=== PATIENT | male | born 1955 | race Caucasian/White ===

== ENCOUNTER 2016-09-15 12:11 | Inpatient (IN) | payer BC ==
[~2016-09-15] VITALS: Ht 175.3 cm; Wt 107.0 kg
[2016-09-15] VITALS (9 sets, daily range): BP systolic 153–190; BP diastolic 90–117; PULSE 90–108; RESP 18–20; TEMP 97.8–98.8; O2SAT 96–99
[2016-09-15] MEDS ORDERED: SODIUM CHLOR 0.9% 1000 ML INJ 1,000 ML IV ONE (12:14)
--- NOTE | 2016-09-15 12:31 | RADRPT ---
EXAM DATE/TIME: 09/15/2016 12:10 [facility] COMPARISON: No previous studies available for comparison. INDICATIONS : Stroke alert; left side weakness. RADIATION DOSE: 56.35 CTDIvol (mGy) This report was called by Gini to Alex at 12: 27 MEDICAL HISTORY : Non-responsive. SURGICAL HISTORY : Non-responsive. ENCOUNTER: Initial ACUITY: 1 day PAIN SCALE: 0/10 LOCATION: cranial TECHNIQUE: Multiple contiguous axial images were obtained of the head. Using automated exposure control and adj ustment of the mA and/or kV according to patient size, radiation dose was kept as low as reasonably a chievable to obtain optimal diagnostic quality images. FINDINGS: CEREBRUM: The ventricles are normal for age. No evidence of midline shift, mass lesion, hemorrhage or acute in farction. No extra-axial fluid collections are seen. POSTERIOR FOSSA: The cerebellum and brainstem are intact. The 4th ventricle is midline. The cerebellopontine angle i s unremarkable. EXTRACRANIAL: The visualized portion of the orbits is intact. SKULL: The calvaria is intact. No evidence of skull fracture. CONCLUSION: Normal examination. Modesto Rubalcava MD on September 15, 2016 at 12:21 Board Certified Radiologist. This report was verified electronically.
[2016-09-15] MEDS ORDERED: ASPI81CH CHEW (12:36)
[2016-09-15] MEDS ORDERED: HYDR25TA5 PO (12:36)
[2016-09-15] MEDS ORDERED: LISI40TA PO (12:36)
[2016-09-15 12:41] LABS: AUTOMATED NEUTROPHIL # 9.4 TH/MM3 (1.8-7.7); BASOPHIL # 0.2 TH/MM3 (0-0.2); BASOPHIL % 1.2 % (0.0-2.0); EOSINOPHIL # 0.2 TH/MM3 (0-0.4); EOSINOPHIL % 1.5 % (0.0-4.0); HEMO FLAGS DIFF FINAL; I-STAT POTASSIUM 4.3 MMOL/L (3.5-4.9); I-STAT SODIUM 138 MMOL/L (138-146); LYMPH % 26.7 % (9.0-44.0); MEAN CORPUSCULAR HEMOGLOBIN 32.1 PG (27.0-34.0); MEAN CORPUSCULAR HGB CONC 34.5 % (32.0-36.0); MONO % 6.9 % (0.0-8.0); NEUT % 63.7 % (16.0-70.0); PLATELET COUNT 369 TH/MM3 (150-450); RED BLOOD COUNT 5.05 MIL/MM3 (4.50-5.90); RED CELL DISTRIBUTION WIDTH 13.1 % (11.6-17.2); WHITE BLOOD COUNT 14.8 TH/MM3 (4.0-11.0)
--- NOTE | 2016-09-15 12:56 | PD ---
HPI Chief Complaint: Stroke Alert Time Seen by Provider: 12:14 Travel History International Travel<30 days: No Contact w/Intl Traveler<30days: No Traveled to known affect area: No History of Present Illness HPI Patient is a 60-year-old male with history of HTN here as a stroke alert. Patient reportedly approximately 11:30 this morning had sudden onset of right sided facial droop, left arm weakness. Stroke alert was called per EMS. Patient is not anticoagulated, vital signs normal. Patient denies any history of CVA, TIA. He denies any neuro deficit. No chest pain, shortness of breath or palpitations. PFSH Past Medical History Hypertension: Yes Past Surgical History Tonsillectomy: Yes Social History Tobacco Use: No Allergies-Medications (Allergen,Severity, Reaction): Coded Allergies: Penicillin (Verified Allergy, Mild, 12/24/05) Sulfa (Verified Allergy, Mild, 12/24/05) Reported Meds & Prescriptions Reported Meds & Active Scripts Active Reported Aspirin 81 Mg Chew 81 Mg CHEW DAILY Hydrochlorothiazide 25 Mg Tab 25 Mg PO DAILY Lisinopril 40 Mg Tab 40 Mg PO DAILY Review of Systems ROS Limitations: Clinical Condition Except as stated in HPI: all other systems reviewed are Neg Physical Exam Exam Limitations: Clinical Condition Narrative GENERAL: Well-appearing male in no acute distress SKIN: Focused skin assessment warm/dry. HEAD: Atraumatic. Normocephalic. EYES: Pupils equal and round. No scleral icterus. No injection or drainage. ENT: No nasal bleeding or discharge. Mucous membranes pink and moist. NECK: Supple CARDIOVASCULAR: Slightly tachycardic with heart rate in the 90s to 100, regular rhythm. No murmur appreciated. RESPIRATORY: No accessory muscle use. Clear to auscultation. Breath sounds equal bilaterally. GASTROINTESTINAL: Abdomen soft, non-tender, nondistended. Obese MUSCULOSKELETAL: No obvious deformities. No edema. NEUROLOGICAL: Awake and alert. No obvious cranial nerve deficits other than subtle right sided facial droop. Left upper extremity is weak with 4+ out of 5 discharge rn strength and flexion/extension, but no drift. Otherwise strength is intact throughout extremities, no ataxia. Normal speech. PSYCHIATRIC: Appropriate mood and affect; insight and judgment normal. Data Data Last Documented VS Vital Signs Date Time Temp Pulse Resp B/P Pulse Ox O2 Delivery O2 Flow Rate FiO2 09/15/16 12:32 98 Nasal Cannula 2 09/15/16 12:11 97.8 108 18 190/117 Orders Diet Npo (09/15/16 Lunch) Activity Bed Rest (09/15/16 ) Electrocardiogram (09/15/16 ) I-Stat Creatinine (09/15/16 12:14) I-Stat Profile (09/15/16 12:14) Prothrombin Time / Inr (Pt) (09/15/16 12:14) Act Partial Throm Time (Ptt) (09/15/16 12:14) Complete Blood Count With Diff (09/15/16 12:14) Fibrinogen (09/15/16 12:14) Creatine Kinase (Cpk) (09/15/16 12:14) Troponin I (09/15/16 12:14) Ua Includes Microscopic (09/15/16 12:14) Drug Screen, Random Urine (09/15/16 12:14) Type And Screen (09/15/16 12:14) Ct Brain W/O Iv Contrast(Rout) (09/15/16 ) Consult Neurology (09/15/16 ) Blood Glucose (09/15/16 12:14) Ecg Monitoring (09/15/16 12:14) Neuro Checks Q2HX12,Q4H (09/15/16 12:14) Nursing Bedside Swallow Assess .ONCE (09/15/16 12:14) Iv Access Insert/Monitor (09/15/16 12:14) NPO (09/15/16 12:14) Oximetry (09/15/16 12:14) Oxygen Administration (09/15/16 12:14) Sodium Chlor 0.9% 1000 Ml Inj (Ns 1000 M (09/15/16 12:14) Resp Oxygen Dez C Titrat 1-4 L (09/15/16 12:14) (Hub Use Only)Inp Phy Cons/Ref (09/15/16 ) Admit Order (Ed Use Only) (09/15/16 12:59) Labs Laboratory Tests Test 09/15/16 09/15/16 12:25 12:37 White Blood Count 14.8 TH/MM3 Red Blood Count 5.05 MIL/MM3 Hemoglobin 16.2 GM/DL Bedside Hemoglobin 17.0 G/DL Hematocrit 47.0 % Bedside Hematocrit 50.0 % Mean Corpuscular Volume 93.0 FL Mean Corpuscular Hemoglobin 32.1 PG Mean Corpuscular Hemoglobin 34.5 % Concent Red Cell Distribution Width 13.1 % Platelet Count 369 TH/MM3 Mean Platelet Volume 8.8 FL Neutrophils (%) (Auto) 63.7 % Lymphocytes (%) (Auto) 26.7 % Monocytes (%) (Auto) 6.9 % Eosinophils (%) (Auto) 1.5 % Basophils (%) (Auto) 1.2 % Neutrophils # (Auto) 9.4 TH/MM3 Lymphocytes # (Auto) 4.0 TH/MM3 Monocytes # (Auto) 1.0 TH/MM3 Eosinophils # (Auto) 0.2 TH/MM3 Basophils # (Auto) 0.2 TH/MM3 CBC Comment DIFF FINAL Differential Comment Bedside Sodium 138 MMOL/L Bedside Potassium 4.3 MMOL/L Bedside Chloride 100 MMOL/L Bedside Blood Urea Nitrogen 11 MG/DL Bedside Creatinine 1.0 MG/DL Bedside Glucose 130 MG/DL Total Creatine Kinase 213 U/L Troponin I LESS THAN 0.02 NG/ML Prothrombin Time 10.6 SEC Prothromb Time International 1.0 RATIO Ratio Activated Partial 26.9 SEC Thromboplast Time Fibrinogen 311 mg/dL Blood Type A NEGATIVE [facility] Medical Decision Making Medical Screen Exam Complete: Yes Emergency Medical Condition: Yes Medical Record Reviewed: Yes Differential Diagnosis 60-year-old male with history of HTN here as a stroke alert for right facial droop, left-sided arm weakness. NIH stroke scale is only 14 facial droop. This is calculated 3 minutes after arrival by myself. Differential includes CVA , TIA, arrhythmia, electrolyte abnormality Narrative Course Patient placed on monitor, IV established and blood obtained. Patient was examined, and a stroke scale of 1 for facial droop. Later by myself 3 minutes after arrival. Patient expedited to CT where imaging of the brain was negative. I spoke with Dr. Coffman of neurology who agrees that given his minimal deficit patient is not a candidate for thrombolysis at this time. Twelve-lead EKG shows sinus tachycardia, rate [address] or T-wave abnormalities and normal intervals. CBC, i-STAT, coags, fibrinogen, CPK, troponin, urinalysis, urine drug screen, type and screen were obtained and notable for WBC 14.8. Urinalysis and urine drug screen remain pending. Patient admitted for further management. Critical Care Narrative Aggregate critical care time was 40 minutes. Time to perform other separately billable procedures was not included in the critical care time. My time did not include minutes spent treating any other patients simultaneously or on activities that did not directly contribute to the patient's treatment. The services I provided to this patient were to treat and/or prevent clinically significant deterioration that could result in: Consideration of thrombolysis I provided critical care services requiring my management, as noted below: Chart data review, documentation time, medication orders and management, vital sign assessments/reviewing monitor data, ordering and reviewing lab tests, ordering and interpreting/reviewing x-rays and diagnostic studies, care of the patient and discussion of the patient with the admitting physicians. Diagnosis Primary Impression: CVA (cerebral vascular accident) Qualified Code: I63.9 - Cerebrovascular accident (CVA), unspecified mechanism Additional Impression: Left arm weakness Admitting Information Admitting Physician Requests: it Kaelyn Johnson MD Sep 15, 2016 12:56
[2016-09-15 13:12] LABS: APTT (PATIENT) 26.9 SEC (24.3-30.1); PROTHROMBIN TIME - PATIENT 10.6 SEC (9.8-11.6)
[2016-09-15 13:25] LABS: CREATINE KINASE 213 U/L (39-308)
[2016-09-15] MEDS ORDERED: ASPIRIN EC 81 MG TABEC PO SCH (14:30)
--- NOTE | 2016-09-15 14:42 | HHI.HP ---
HPI Service Family Medicine Primary Care Physician Unknown Admission Diagnosis CVA, L arm weakness Diagnoses: International Travel<30 Days: No Contact w/Intl Traveler<30days: No Known Affected Area: No History of Present Illness 60-year-old male with HTN and tobacco use presents with slurred speech and left arm weakness. Symptoms began acutely 2.5 hours ago (11:30am) while patient was walking to his car after Court and his left arm "just wouldn' t work". He drove to his office, took aspirin, and an ambulance drove him to the ED. Symptoms have improved somewhat over the last 3 hours, but reports continued slurred speech, loss of fine motor movement of left hand (trouble holding phone), and decreased visual acuity (difficulty reading texts). Review of systems otherwise negative. Denies headache, double vision, neck pain, chest pain/palpitations, shortness of breath, abdominal pain, nausea/vomiting, urinary symptoms, incontinence, or neuropathy. Pt 05/28 PPD smoker x 40 years. 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 (Monique Louise MD R1) Review of Systems Constitutional: DENIES: Fever, Chills, Dizziness Endocrine: DENIES: Polyuria, Polyphagia Eyes: DENIES: Blurred vision, Double Vision Ears, nose, mouth, throat: DENIES: Throat pain, Hoarseness Respiratory: COMPLAINS OF: Snoring, DENIES: Cough, Wheezing, Shortness of breath Cardiovascular: DENIES: Chest pain, Palpitations, Syncope, Lower Extremity Edema Gastrointestinal: DENIES: Abdominal pain, Constipation, Diarrhea, Nausea, Vomiting, Difficulty Swallowing Genitourinary: DENIES: Urinary frequency, Urinary incontinence Musculoskeletal: DENIES: Joint pain, Neck pain Integumentary: DENIES: Rash Neurologic: COMPLAINS OF: Localized weakness, Speech Problems, DENIES: Abnormal gait, Headache, Paresthesias, Seizures Psychiatric: DENIES: Confusion, Mood changes (Monique Louise MD R1) Past Family Social History Past Medical History HTN Borderline HLD (not requiring medication, per pt) Past Surgical History Tonsillectomy Root canal Reported Medications Aspirin 81 Mg daily Hydrochlorothiazide 25 Mg daily (occasionally forgets to take) Lisinopril 40 Mg daily (Monique Louise MD R1) Allergies: Coded Allergies: Amoxicillin (Verified Adverse Reaction, Mild, Rash, 09/15/16) Day 5-6 of use on arm. No tongue swelling, no difficulty swallowing, no lip swelling. Family History Mother at 77 of brain aneurysm. Father of "old age", had several small strokes during the last years of life. Denies family history of bleeding disorders of stroke in people younger than 90. Social History Tobacco: 05/28 PPD * 40 years Alcohol: 12 beers/week. Occasionally more than 6 drink/day on a special occasion/if not driving. Recently went 1 week without drinking. Denies withdrawal symptoms. 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 (Monique Louise MD R1) Physical Exam Vital Signs Vital Signs Date Time Temp Pulse Resp B/P Pulse Ox O2 Delivery O2 Flow Rate FiO2 09/15/16 12:32 98 Nasal Cannula 2 09/15/16 12:17 96 Nasal Cannula 2.00 09/15/16 12:11 97.8 108 18 190/117 99 09/15/16 12:10 96 2.00 Physical Exam GENERAL: Obese male in no acute distress, lying with HOB flat SKIN: Warm and dry, no rashes HEENT: Pupils equal round and reactive. Extraocular motions intact. No scleral icterus. No injection or drainage. Throat without erythema, tonsillar hypertrophy or exudate. Uvula midline. NECK: Trachea midline. No JVD or lymphadenopathy. Thick neck. CARDIOVASCULAR: Borderline Tachycardic. Regular rate and rhythm. No murmurs. RESPIRATORY: Clear to auscultation. Breath sounds equal bilaterally. No wheezes GASTROINTESTINAL: Abdomen obese, soft, non-tender, nondistended. No hepato- splenomegaly, or palpable masses. No guarding. MUSCULOSKELETAL: Extremities without clubbing, cyanosis, or edema. No joint tenderness, effusion, or edema noted. No calf tenderness. NEUROLOGICAL: Awake and alert. Questionable minimal R-sided facial droop. Minimally slurred speech. Otherwise, CN II through XII intact. L bicep/tricep strength 4/5. All other strength 5/5. Sensation intact. Patellar reflexes 1+ b/ l. No pronator drift. Gait deferred. Laboratory Laboratory Tests Test 09/15/16 09/15/16 12:25 12:37 White Blood Count 14.8 Red Blood Count 5.05 Hemoglobin 16.2 Bedside Hemoglobin 17.0 Hematocrit 47.0 Bedside Hematocrit 50.0 Mean Corpuscular Volume 93.0 Mean Corpuscular Hemoglobin 32.1 Mean Corpuscular Hemoglobin 34.5 Concent Red Cell Distribution Width 13.1 Platelet Count 369 Mean Platelet Volume 8.8 Neutrophils (%) (Auto) 63.7 Lymphocytes (%) (Auto) 26.7 Monocytes (%) (Auto) 6.9 Eosinophils (%) (Auto) 1.5 Basophils (%) (Auto) 1.2 Neutrophils # (Auto) 9.4 Lymphocytes # (Auto) 4.0 Monocytes # (Auto) 1.0 Eosinophils # (Auto) 0.2 Basophils # (Auto) 0.2 CBC Comment DIFF FINAL Differential Comment Bedside Sodium 138 Bedside Potassium 4.3 Bedside Chloride 100 Bedside Blood Urea Nitrogen 11 Bedside Creatinine 1.0 Bedside Glucose 130 Total Creatine Kinase 213 Troponin I LESS THAN 0.02 Prothrombin Time 10.6 Prothromb Time International 1.0 Ratio Activated Partial 26.9 Thromboplast Time Fibrinogen 311 Blood Type A NEGATIVE Antibody Screen NEGATIVE (Monique Louise MD R1) Result Diagram: 09/15/16 1225 Imaging Last Impressions Head CT 09/15/16 0000 Signed Impressions: Service Date/Time: Thursday, September 15, 2016 12:10 - CONCLUSION: Normal examination. Modesto Rubalcava MD Course ED course: 60-year-old male with history of HTN presents as stroke alert for right facial droop, left-sided arm weakness. Patient placed on monitor, IV established and blood obtained. Examined, stroke scale of 1 for facial droop. Expedited to CT where imaging of the brain was negative. Dr May spoke with Dr. Coffman of neurology who agrees that given his minimal deficit patient is not a candidate for thrombolysis at this time. Twelve-lead EKG shows sinus tachycardia, rate [address] or T-wave abnormalities and normal intervals. CBC, i-STAT, coags, fibrinogen, CPK, troponin, urinalysis, urine drug screen, type and screen were obtained and notable for WBC 14.8. Urinalysis and urine drug screen remain pending. Patient admitted for further management. (Monique Louise MD R1) Assessment and Plan Assessment and Plan 60 year old male with HTN and tobacco use presenting 09/15/16 with ischemic stroke. Code Status Full Discussed Condition With Discussed with Dr. Hi (Monique Louise MD R1) Attending Attestation The patient has been seen and examined. The chart and all resident notes have been reviewed. I agree that inpatient care is appropriate and that a two midnight stay is expected for the reasons documented in the resident history and physical. I have discussed this with the resident and certify the resident s order for inpatient admission. (Shyla Hi MD) Problem List: (1) Ischemic stroke Status: Acute Plan: Neurologic findings including slurred speech, L arm weakness, loss of fine motor control L hand, and decreased visual acuity. Symptoms consistent with TIA versus Stroke. CT head negative for intracranial process, suggests ischemic process. Presenting in window for thrombolytic tx. However, Dr May spoke with Dr. Coffman of neurology, agreed given his minimal deficit, patient not a candidate for thrombolysis at this time. Neurology was consulted in the emergency department, recommendations appreciated Imaging - CT brain (09/15) with no acute findings - MRI brain pending - Carotid ultrasound pending - ECHO pending Medication Aspirin 325g PO daily Plavix 75mg PO daily in AM Pravastatin 40 mg PO hs Labs - Low suspicion for cardiac involvement - EKG: Sinus tachycardia, rate [address] or T-wave abnormalities. Normal intervals. Repeat at 1800. - Trop I <0.02. Repeat at 1800, if wnl, stop trending. - CK at 1800, if wnl, stop trending. - Bun/Cr, U/A, UDS, fibrinogen pending - CBC, CMP, fasting lipid panel in AM Supportive management: - Supplemental oxygen as needed for saturations >92%, wean to room air, as tolerated - Telemetry to evaluate for arrhythmia, such as atrial fibrillation - PT/OT, Case Management, Stroke Navigator consulted, Rehab Medicine - Smoking cessation ordered - Head of bed flat x12 hours - Neurochecks q4h - Permissive hypertension to 220/110, PRN antihypertensive with hydralazine (2) Left arm weakness Status: Acute Plan: -See plan for ischemic stroke (3) HTN (hypertension) Status: Chronic Plan: Chronic. Hypertensive to 190/120 on admission. - Permissive HTN to 220/110 - Hold home lisinopril 40mg daily - Hold home HCTZ 25mg daily (4) Tobacco abuse Status: Chronic Plan: 05/28 ppd * 40y. Enjoys the social aspect of having with beer or coffee. - Smoking cessation counseling provided - Nicotine patch/gum contraindicated, as vasoconstrictor (5) Fluids, Electrolytes, Nutrition, Prophylaxis Status: Acute Plan: Fluids: Encourage PO hydration, once pass bedside swallow. If fails, will start IVF Electrolytes: Normal on admission, will continue to trend, as replete, as needed Nutrition: Heart Healthy Diet, once passes bedside swallow GI prophylaxis: Not indicated DVT prophylaxis: Lovenox 40mg SQ daily Constipation: Eva-Colace 2 tab HS (Monique Louise MD R1) Physician Certification 2 Midnight Certification Type: Admission for Inpatient Services Order for Inpatient Services The services are ordered in accordance with Medicare regulations or non- Medicare payer requirements, as applicable. In the case of services not specified as inpatient-only, they are appropriately provided as inpatient services in accordance with the 2-midnight benchmark. Estimated LOS (days): 2 days is the estimated time the patient will need to remain in the hospital, assuming treatment plan goals are met and no additional complications. Post-Hospital Plan: Home (Monique Louise MD R1) Problem Qualifiers (1) HTN (hypertension): Qualified Code: I10 - Essential hypertension Monique Louise MD R1 Sep 15, 2016 14:42 Shyla Hi MD September 29, 2016 08:58
[2016-09-15] MEDS: ASPIRIN 325 MG TAB PO SCH (15:30)
[2016-09-15] MEDS ORDERED: MELATONIN 5 MG TAB PO PRN (16:00)
[2016-09-15] MEDS ORDERED: diphenhydrAMINE HCL 25 MG CAP PO PRN (16:00)
[2016-09-15] MEDS ORDERED: ONDANSETRON ODT 4 MG TAB PO PRN (16:00)
[2016-09-15] MEDS ORDERED: DEXTROSE 50% IN WATER 50 ML VIAL(D50) IV PUSH PRN (16:15)
[2016-09-15] MEDS ORDERED: ENALAPRILAT 1.25 MG/ML VIAL IV PRN (16:15)
[2016-09-15] MEDS ORDERED: PILL SPLITTER OTHER PRN (16:15)
[2016-09-15] MEDS ORDERED: GLUCAGON 1 MG/ML VIAL IM/SQ PRN (16:15)
--- NOTE | 2016-09-15 16:54 | RADRPT ---
EXAM DATE/TIME: 09/15/2016 16:14 [facility] COMPARISON: No previous studies available for comparison. INDICATIONS : CVA. MEDICAL HISTORY : Hypertension. SURGICAL HISTORY : Tonsillectomy. ENCOUNTER: Initial ACUITY: 1 day PAIN SCORE: 2/10 LOCATION: Bilateral cranial TECHNIQUE: Multiplanar, multisequence MRI of the brain was performed without contrast. FINDINGS: The craniocervical junction and midline structures are unremarkable. There is fracture to diffusion i n the posterior right frontal and right parietal region in a serpentine fashion characteristic of acu te infarct without evidence of acute hemorrhage. There is no significant mass effect or midline shift . No fracture or fluid collections are identified. Posterior fossa structures are unremarkable. CONCLUSION: 1. Acute ischemic infarct without mass effect in the right frontal parietal region confined to the gr ay-white junction. Robi Ross MD on September 15, 2016 at 16:49 Board Certified Radiologist. This report was verified electronically.
--- NOTE | 2016-09-15 17:50 | RADRPT ---
EXAM DATE/TIME: 09/15/2016 16:49 [facility] COMPARISON: No previous studies available for comparison. INDICATIONS : Cerebrovascular accident. MEDICAL HISTORY : Hypertension. Left arm weakness. Right facial droop. SURGICAL HISTORY : Tonsillectomy. ENCOUNTER: Initial ACUITY: 1 day PAIN SCORE: 0/10 LOCATION: Bilateral neck PEAK SYSTOLIC VELOCITIES (cm/sec): ICA/CCA RATIO: Right: 0.9 Left: 0.8 ICA: Right: 105 Left: 79 CCA: Right: 116 Left: 100 ECA: Right: 105 Left: 116 VERTEBRAL: Right: 60 antegrade Left: 35 antegrade Elevated flow velocities and ICA/CCA ratios have been found to correlate with increased degrees of vessel stenosis, calculated as percentage of diameter relative to a normal segment of distal ICA/CCA FINDINGS: RIGHT CAROTID: No significant stenosis is visualized. Mild plaque is present. The waveforms are within normal limits . LEFT CAROTID: No significant stenosis is visualized. Mild plaque is present. The waveforms are within normal limits . VERTEBRAL ARTERIES: Antegrade flow is seen in both vertebral arteries. MISCELLANEOUS: None. CONCLUSION: Mild bilateral plaque with no evidence of stenosis. Jayesh Gutierrez MD on September 15, 2016 at 17:47 Board Certified Radiologist. This report was verified electronically.
--- NOTE | 2016-09-15 19:10 | RADRPT ---
EXAM DATE/TIME: 09/15/2016 16:14 [facility] COMPARISON: MRI BRAIN W/O CONTRAST, September 15, 2016, 16:14. CT BRAIN W/O CONTRAST, September 15, 2016, 12:10. INDICATIONS : Stroke. MEDICAL HISTORY : Hypertension. SURGICAL HISTORY : Tonsillectomy. ENCOUNTER: Subsequent ACUITY: 1 day PAIN SCORE: 2/10 LOCATION: cranial Please note a normal MRA of the brain does not entirely exclude the possibility of a small aneurysm, nor the possibility of distal intracranial vessel disease. TECHNIQUE: 3D time of flight MRA was performed. Source images, multiplanar STS MIP, and 3D volume MIP reconstru ctions were reviewed. FINDINGS: There is excellent visualization of the major intracranial arteries out to the second-order branch ve ssels. There is no evidence for aneurysm, vessel truncation or stenosis, and no evidence for vascula r malformation. CONCLUSION: Normal examination. Deejay Pierre MD on September 15, 2016 at 19:07 Board Certified Radiologist. This report was verified electronically.
--- NOTE | 2016-09-15 20:08 | HHI.FPPN ---
Subjective Subjective Patient seen and examined in the ED. Case reviewed and discussed Please refer to resident H&P for further details regarding HPI, ROS, PMH, SurgHx , FH and SocHx In summary, patient is a 60yo R handed M with a PMH significant for HTN, tobacco dependence presenting with acute onset on L arm weakness and slurred speech. He is seen in the ED with MRI pending. Patient reporting that his symptoms are improved since onset, but he is not back to baseline. 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 [facility] Objective Objective Last Impressions Head CT 09/15/16 0000 Signed Impressions: Service Date/Time: Thursday, September 15, 2016 12:10 - CONCLUSION: Normal examination. Modesto Rubalcava MD Carotid Artery Ultrasound 09/15/16 0000 Signed Impressions: Service Date/Time: Thursday, September 15, 2016 16:49 - CONCLUSION: Mild bilateral plaque with no evidence of stenosis. Jayesh Gutierrez MD Laboratory Tests - Abnormals Test 09/15/16 12:25 White Blood Count 14.8 TH/MM3 Neutrophils # (Auto) 9.4 TH/MM3 Monocytes # (Auto) 1.0 TH/MM3 Estimat Glomerular Filtration 71 ML/MIN Rate Bedside Glucose 130 MG/DL Troponin I LESS THAN 0.02 NG/ML Vital Signs 09/15/16 09/15/16 09/15/16 09/15/16 12:10 12:11 12:17 12:32 Temp 97.8 Pulse 108 Resp 18 B/P 190/117 Pulse Ox 96 99 96 98 O2 Delivery Nasal Cannula Nasal Cannula O2 Flow Rate 2.00 2.00 2 09/15/16 09/15/16 09/15/16 09/15/16 14:47 16:55 17:23 18:39 Temp 98.8 Pulse 97 97 100 90 Resp 18 18 18 20 B/P 174/90 154/95 154/95 153/96 Pulse Ox 99 97 96 96 O2 Delivery Nasal Cannula O2 Flow Rate 2 Physical exam GENERAL: wdwn male, lying with HOB flat. Awake, alert. Communicative SKIN: Warm and dry. No rashes. HEAD: Normocephalic. AT. OP clear. MMM EYES: No scleral icterus. No injection or drainage. EOMI NECK: Supple, trachea midline. No JVD or lymphadenopathy. CARDIOVASCULAR: Regular rate and rhythm without murmurs, gallops, or rubs. RESPIRATORY: Breath sounds equal and cleat to auscultation bilaterally. No accessory muscle use. GASTROINTESTINAL: Abdomen soft, non-tender, nondistended. Normal active BS. MUSCULOSKELETAL: No cyanosis, or edema. No calf tenderness. NEURO: Awake, alert. Normal speech. Mild L facial droop Normal litigation legal assistant strength b/ l. Sensation intact and equal bilaterally. Diminished shoulder shrug on L>R. LUE 4/5, RUE 5/5. Bilateral LE 5/5 x 2. Assessment Assessment 60yoM admitted with: TIA vs CVA, MRI pending Acute neurologic change HTN, uncontrolled Tobacco dependence Leukocytosis Tachycardia Diet controlled HL FH ruptured cerebral aneurysm in mother PLAN PLAN Stroke protocol MRI/MRA Carotid Ultrasound 2D echo NIH SS Neuro consulted and aware of patient- determined no TPA Permissive HTN HOB flat ASA Counseled to quit smoking FLP Trend CBC PT/OT/ST Telemetry monitoring DVT proph Patient seen and examined. Case reviewed and discussed Agree with plan of care as discussed with me and documented in the resident note. Shyla Hi MD Sep 15, 2016 20:08
[2016-09-15] MEDS ORDERED: PRAVASTATIN SOD 40 MG TAB PO SCH (21:00)
--- NOTE | 2016-09-15 21:03 | EC ---
Study Study Date:09/15/2016 STUDY CONCLUSIONS SUMMARY LEFT VENTRICLE: The cavity size was normal. Wall thickness was normal. Systolic function was normal. The estimated ejection fraction was 65%. Wall motion was normal; there were no regional wall motion abnormalities. If LV function is below 40, please consider prescribing an ACEI or ARB or document rationale for non-use. PROCEDURE DATA STUDY STATUS: Elective. Procedure: Transthoracic echocardiography. Image quality was good. Scanning was performed from the parasternal, apical, and subcostal acoustic windows. Study completion: The patient tolerated the procedure well. Transthoracic echocardiography. M-mode, complete 2D, complete spectral Doppler, and color Doppler. Patient status: Inpatient. CARDIAC ANATOMY LEFT VENTRICLE: The cavity size was normal. Wall thickness was normal. Systolic function was normal. The estimated ejection fraction was 65%. Wall motion was normal; there were no regional wall motion abnormalities. AORTIC VALVE: Trileaflet; normal thickness leaflets. Doppler: Transvalvular velocity was within the normal range. There was no stenosis. No regurgitation. AORTA: Aortic root: The aortic root was normal in size. MITRAL VALVE: Structurally normal valve. Doppler: Transvalvular velocity was within the normal range. There was no evidence for stenosis. Trace regurgitation. LEFT ATRIUM: The atrium was normal in size. RIGHT VENTRICLE: The cavity size was normal. Wall thickness was normal. PULMONIC VALVE: Doppler: Transvalvular velocity was within the normal range. There was no evidence for stenosis. No regurgitation. TRICUSPID VALVE: Structurally normal valve. Doppler: Transvalvular velocity was within the normal range. Trace regurgitation. PULMONARY ARTERY: The main pulmonary artery was normal-sized. Systolic pressure was within the normal range. RIGHT ATRIUM: The atrium was normal in size. PERICARDIUM: There was no pericardial effusion. SYSTEMIC VEINS: Inferior vena cava: The vessel was normal in size. BASIC MEASUREMENTS ADULT NORMAL Left ventricle LV internal dimension, ED, chordal level, *55.2 mm 43-52 PLAX LV internal dimension, ES, chordal level, 36 mm 23-38 PLAX Fractional shortening, chordal level, PLAX 35 % >29 LV posterior wall thickness, ED 11.9 mm IVS/LVPW ratio, ED 0.91 <1.3 Ventricular septum Septal thickness, ED 10.8 mm Aortic valve Leaflet separation 23 mm 15-26 Right ventricle RV internal dimension, ED, PLAX 26.7 mm 19-38 BASIC MEASUREMENTS ADULT NORMAL Aortic valve Leaflet separation 23 mm 15-26 Aorta Root diameter, ED 30 mm 20-37 Left atrium Anterior-posterior dimension, ES 38 mm 19-40 LA/aortic root ratio 1.27 LEGEND: Mean values are shown as u=mean value. Asterisk (*) fong values outside specified normal range. Prepared and signed by Harish Morales [id number]
[2016-09-15] MEDS: ENOXAPARIN SODIUM 40 MG/0.4 ML SYRINGE SQ SCH (21:44)
[2016-09-15] MEDS: DOCUSATE SODIUM 50 MG/SENNA 8.6 MG TAB PO SCH (21:44)
[2016-09-15] MEDS: INSULIN ASPART SUPPLEMENTAL SCALE SQ SCH (21:49)
[2016-09-15 22:03] LABS: CREATINE KINASE 223 U/L (39-308)
[2016-09-15] MEDS ORDERED: SODIUM CHLOR 0.9% 1000 ML INJ 1,000 ML IV SCH (22:48)
[2016-09-15] MEDS: ACETAMINOPHEN 325 MG TAB PO PRN (22:55)
[2016-09-16] VITALS (10 sets, daily range): BP systolic 136–167; BP diastolic 60–100; PULSE 69–86; RESP 14–20; TEMP 96.7–97.4; O2SAT 95–97
[2016-09-16 02:16] LABS: BLOOD, URINE NEG (NEG); GLUCOSE,URINE NEG (NEG); KETONE, URINE TRACE mg/dL (NEG); MUCUS URINE FEW /lpf (OCC); NITRITE,URINE NEG (NEG); PH, URINE 7.5 (5.0-8.5); URINE COLOR YELLOW (YELLW/STRAW)
[2016-09-16 02:51] LABS: AMPHETAMINE, URINE NEG (NEG); BARBITURATES, URINE NEG (NEG); COCAINE, URINE NEG (NEG)
[2016-09-16] MEDS: INSULIN ASPART SUPPLEMENTAL SCALE SQ SCH ×4 (07:00→20:51)
[2016-09-16 07:46] LABS: HEMATOCRIT 44.4 % (39.0-51.0); MEAN CELL VOLUME 93.1 FL (80.0-100.0); MEAN CORPUSCULAR HGB CONC 34.4 % (32.0-36.0); PLATELET COUNT 341 TH/MM3 (150-450); RED BLOOD COUNT 4.77 MIL/MM3 (4.50-5.90); RED CELL DISTRIBUTION WIDTH 13.1 % (11.6-17.2); REVIEW FLAG FINAL; WHITE BLOOD COUNT 16.2 TH/MM3 (4.0-11.0)
[2016-09-16] MEDS: ASPIRIN 325 MG TAB PO SCH (07:56)
[2016-09-16 08:17] LABS: ALKALINE PHOSPHATASE 56 U/L (45-117); ALT (GPT) 38 U/L (12-78); ANION GAP 10 MEQ/L (5-15); AST (GOT) 29 U/L (15-37); BICARBONATE 26.4 MEQ/L (21.0-32.0); BLOOD UREA NITROGEN 11 MG/DL (7-18); CHLORIDE 102 MEQ/L (98-107); GLOMERULAR FILTRATION RATE 81 ML/MIN (>89); HDL CHOLESTEROL 27.1 MG/DL (40.0-60.0); POTASSIUM 3.3 MEQ/L (3.5-5.1); SODIUM (NA) 138 MEQ/L (136-145); TOTAL BILIRUBIN ADULT 0.8 MG/DL (0.2-1.0)
[2016-09-16] MEDS ORDERED: POTASSIUM CHLORIDE 20 MEQ CONTROLLED RELEASE TAB PO ONE (09:30)
[2016-09-16] MEDS ORDERED: POTASSIUM CHLORIDE 10 MEQ CONTROLLED RELEASE TAB PO ONE (09:45)
[2016-09-16] MEDS: ACETAMINOPHEN 325 MG TAB PO PRN ×2 (09:56→20:42)
--- NOTE | 2016-09-16 10:27 | HHI.FPPN ---
Subjective Remarks Overnight, asymptomatic run of 15 beats of V tach at 4:17am. Denies chest pain, palpitations, or SOB, but "set off the monitor" when he got up to the bathroom. Afebrile. Borderline tachycardic at 90-100. B/P decreasing to 136/94 this morning. Saturating 95% or higher on room air. Eating and voiding well. Has not yet stooled. Ambulation prohibited by stroke protocol. PT to see. Patient feels well. Slurred speech and L arm weakness still "not back to normal ", but significantly improved. Acute concern is discharge timeline. Daughter (pharmacist) and son-in-law in room- asking about results of lab tests. (Monique Louise MD R1) Objective Vitals Vital Signs Date Time Temp Pulse Resp B/P Pulse Ox O2 Delivery O2 Flow Rate FiO2 09/16/16 08:23 97.4 86 18 145/89 97 09/16/16 05:44 97.2 82 18 136/94 95 09/16/16 01:04 96.7 81 18 140/92 96 09/15/16 21:20 98.2 91 19 167/106 96 09/15/16 21:00 93 09/15/16 18:39 98.8 90 20 153/96 96 09/15/16 17:23 100 18 154/95 96 09/15/16 16:55 97 18 154/95 97 09/15/16 14:47 97 18 174/90 99 Nasal Cannula 2 09/15/16 12:32 98 Nasal Cannula 2 09/15/16 12:17 96 Nasal Cannula 2.00 09/15/16 12:11 97.8 108 18 190/117 99 09/15/16 12:10 96 2.00 I/O 09/15/16 09/15/16 09/15/16 09/16/16 09/16/16 09/16/16 07:00 15:00 23:00 07:00 15:00 23:00 Output Total 300 ml Balance -300 ml Output Urine Total 300 ml # Bowel Movements 0 (Monique Louise MD R1) Result Diagram: 09/16/16 0700 09/16/16 0700 Imaging Last Impressions Chest X-Ray 09/16/16 0000 Signed Impressions: Service Date/Time: Friday, September 16, 2016 09:48 - CONCLUSION: No acute cardiopulmonary abnormality is identified. Karan Martinez MD Head Magnetic Resonance Angiography 09/15/16 0000 Signed Impressions: Service Date/Time: Thursday, September 15, 2016 16:14 - CONCLUSION: Normal examination. Deejay Pierre MD Head CT 09/15/16 0000 Signed Impressions: Service Date/Time: Thursday, September 15, 2016 12:10 - CONCLUSION: Normal examination. Modesto Rubalcava MD Carotid Artery Ultrasound 09/15/16 0000 Signed Impressions: Service Date/Time: Thursday, September 15, 2016 16:49 - CONCLUSION: Mild bilateral plaque with no evidence of stenosis. Jayesh Gutierrez MD Brain MRI 09/15/16 0000 Signed Impressions: Service Date/Time: Thursday, September 15, 2016 16:14 - CONCLUSION: 1. Acute ischemic infarct without mass effect in the right frontal parietal region confined to the townsend-white junction. Robi Ross MD Objective Remarks GENERAL: Obese male in no acute distress, lying with HOB at 30 degrees (changed to flat). Daughter and son in law in room. SKIN: Warm and dry, no rashes HEENT: Pupils equal round and reactive. Extraocular motions intact. No scleral icterus. No injection or drainage. Throat without erythema, tonsillar hypertrophy or exudate. Uvula midline. NECK: Trachea midline. No JVD or lymphadenopathy. Thick neck. CARDIOVASCULAR: Borderline Tachycardic. Regular rate and rhythm. No murmurs. RESPIRATORY: Clear to auscultation. Breath sounds equal bilaterally. No wheezes GASTROINTESTINAL: Abdomen obese, soft, non-tender, nondistended. No hepato- splenomegaly, or palpable masses. No guarding. MUSCULOSKELETAL: Extremities without clubbing, cyanosis, or edema. No joint tenderness, effusion, or edema noted. No calf tenderness. NEUROLOGICAL: Awake and alert. Minimal R-sided facial droop. Otherwise, Minimally slurred speech. Otherwise, CN II through XII intact. L Bicep/tricep strength 4/5. All other strength 5/5. Sensation intact. No pronator drift. Gait deferred. (Monique Louise MD R1) A/P Assessment and Plan 60 year old male with HTN and tobacco use presenting 09/15/16 with ischemic stroke. Discharge Planning Pending recommendations from neurology and no further episodes of Vtach (Monique Louise MD R1) Attending Attestation Patient seen and examined. Case reviewed and discussed. Agree with plan of care as discussed with me and documented in the resident note. (Shyla Hi MD) Problem List: (1) Ischemic stroke Status: Acute Plan: Neurologic findings including slurred speech, L arm weakness, loss of fine motor control L hand, and decreased visual acuity. Family history +brain aneurysm (mother, 77). Differential on admission strongly suggestive TIA versus Stroke Presenting in window for thrombolytic tx. However, Dr May spoke with Dr. Coffman of neurology, stated given minimal deficit, patient not a candidate for thrombolysis at this time. -MRI brain (09/15): Acute ischemic infarct without mass effect in the R frontal parietal region confined to the townsend-white junction Plan Neurology was consulted, recommendations appreciated Spoke with patient this morning, per patient, expects good recovery Per patient, to be discharge on aspirin only as antiplatelet- endorses noncompliance with aspirin at time of stroke Medication Aspirin 325g PO daily Pravastatin 40 mg PO hs LSSI for hyperglycemia after stroke Imaging - MRI brain (09/15): Acute ischemic infacrt without mass effect in the R frontal parietal region confined to the townsend-white junction - CT brain (09/15) with no acute findings - Carotid ultrasound (09/15)- mild bilateral plaque with no evidence of stenosis - ECHO (09/15): EF 65%. No chamber size or wall motion abnormalities. - MRA- normal examination - EKG: Sinus tachycardia, rate [address] or T-wave abnormalities. Normal intervals. Repeat at 1800 Labs -Trop <0.02 x2, CK x1 wnl. -Lipid Panel: TG 452 / Chol 188 / LDL unreadable / HDL 27, statin as above ( high triglycerides prevents adequate reading of LDL) -Follow up lipid panel at discharge Supportive management: - Supplemental oxygen as needed for saturations >92% - Telemetry to evaluate for arrhythmia, such as atrial fibrillation - PT/OT/ST, Case Management, Stroke Navigator consulted, Rehab Medicine ST: Regular diet, thin liquids, no further follow up Stroke Navigator spoke with patient, provided smoking cessation resources - -Smoking cessation counseling provided - Head of bed flat x12 hours - Neurochecks q4h - Permissive hypertension to 220/110, PRN antihypertensive with hydralazine (2) Ventricular tachycardia seen on groundwater monitoring technician Status: Acute Plan: -Asymptomatic run of 15 beat v-tach seen 4:17 when patient getting up to go to bathroom -Continue telemetry -Further workup if becomes asymptomatic or further episode (3) Left arm weakness Status: Acute Plan: Secondary to ischemic stroke. -Plan per PT/OT recommendations (4) Slurred speech Status: Resolved Plan: Moderate on admission, improving. -Per ST, no dietary limitations, no outpatient follow up needed (5) HTN (hypertension) Status: Chronic Plan: Chronic. Hypertensive to 190/120 on admission. Downtrnending. - Permissive HTN to 220/110 - As pressures trending 130/70 right now, will continue to hold home b/p meds unless b/p trends acutely upwards - Hold home lisinopril 40mg daily - Hold home HCTZ 25mg daily (6) Leukocytosis Status: Acute Plan: Leukocytosis to 14.2 on admission, increased to 16.2 today. Does not appear sepsis. Suspect stress reaction. -CXR to rule out PNA -Trend CBC (7) Tobacco abuse Status: Chronic Plan: 05/28 ppd * 40y. Enjoys the social aspect of having with beer or coffee. - Smoking cessation counseling provided - Nicotine patch/gum contraindicated, as vasoconstrictor (8) Fluids, Electrolytes, Nutrition, Prophylaxis Status: Acute Plan: Fluids: Encourage PO hydration Electrolytes: Normal on admission, will continue to trend, as replete, as needed Nutrition: Heart Healthy Diet GI prophylaxis: Not indicated DVT prophylaxis: Lovenox 40mg SQ daily Constipation: Eva-Colace 2 tab HS Discussed with Dr. Hi (Monique Louise MD R1) Problem Qualifiers (1) HTN (hypertension): Qualified Code: I10 - Essential hypertension Monique Louise MD R1 Sep 16, 2016 10:27 Shyla Hi MD September 29, 2016 09:00
--- NOTE | 2016-09-16 10:38 | RADRPT ---
EXAM DATE/TIME: 09/16/2016 09:48 [place] COMPARISON: No previous studies available for comparison. INDICATIONS : Pneumonia. MEDICAL HISTORY : None. SURGICAL HISTORY : None. ENCOUNTER: Subsequent ACUITY: 2 days PAIN SCORE: 7/10 LOCATION: Bilateral chest FINDINGS: Portable AP view of the chest demonstrates a normal-sized cardiac silhouette. No effusion, consolidat ion, or pneumothorax is visualized. The bones and soft tissues demonstrate no acute abnormality. EKG lines overlie the patient. CONCLUSION: No acute cardiopulmonary abnormality is identified. Karan Martinez MD on September 16, 2016 at 10:32 Board Certified Radiologist. This report was verified electronically.
--- NOTE | 2016-09-16 13:00 | EKG ---
Date Performed: 09/15/2016 Time Performed: 12:25:08 PTAGE: 60 years EKG: SINUS TACHYCARDIA WITH OCCASIONAL ECTOPIC PREMATURE COMPLEXES ABNORMAL RHYTHM ECG NO PREVIOUS TRACING DOCTOR: Kraig Mcmullen Interpretating Date/Time 09/16/2016 12:59:16
[2016-09-16 17:33] LABS: AUTOMATED NEUTROPHIL # 7.9 TH/MM3 (1.8-7.7); BASOPHIL # 0.1 TH/MM3 (0-0.2); BASOPHIL % 0.5 % (0.0-2.0); EOSINOPHIL # 0.2 TH/MM3 (0-0.4); EOSINOPHIL % 1.6 % (0.0-4.0); HEMATOCRIT 44.2 % (39.0-51.0); HEMO FLAGS DIFF FINAL; LYMPH % 28.8 % (9.0-44.0); LYMPHOCYTE # 3.7 TH/MM3 (1.0-4.8); MEAN CELL VOLUME 93.7 FL (80.0-100.0); MEAN CORPUSCULAR HEMOGLOBIN 31.5 PG (27.0-34.0); MEAN CORPUSCULAR HGB CONC 33.6 % (32.0-36.0); MONO % 8.5 % (0.0-8.0); NEUT % 60.6 % (16.0-70.0); PLATELET COUNT 314 TH/MM3 (150-450); RED BLOOD COUNT 4.72 MIL/MM3 (4.50-5.90); RED CELL DISTRIBUTION WIDTH 12.9 % (11.6-17.2)
[2016-09-16] MEDS: ENOXAPARIN SODIUM 40 MG/0.4 ML SYRINGE SQ SCH (20:42)
[2016-09-16] MEDS: DOCUSATE SODIUM 50 MG/SENNA 8.6 MG TAB PO SCH (20:43)
[2016-09-16] MEDS ORDERED: ATORVASTATIN 40 MG TAB PO SCH (21:00)
[2016-09-16] MEDS: HYDROCHLOROTHIAZIDE 25 MG TAB PO SCH (21:10)
[2016-09-16] MEDS: LISINOPRIL 20 MG TAB PO SCH (21:10)
[2016-09-17 00:05] VITALS: BP 143/88; PULSE 76; RESP 18; TEMP 96.9; O2SAT 96
[2016-09-17 06:19] VITALS: BP 125/78; PULSE 81; RESP 20; TEMP 96.9; O2SAT 96
[2016-09-17] MEDS: INSULIN ASPART SUPPLEMENTAL SCALE SQ SCH (06:27)
[2016-09-17 08:00] VITALS: BP 140/84; PULSE 74; RESP 20; TEMP 96.6; O2SAT 96
[2016-09-17] MEDS: LISINOPRIL 20 MG TAB PO SCH (08:07)
[2016-09-17] MEDS: HYDROCHLOROTHIAZIDE 25 MG TAB PO SCH (08:07)
[2016-09-17] MEDS: ASPIRIN 325 MG TAB PO SCH (08:07)
[2016-09-17] MEDS: ACETAMINOPHEN 325 MG TAB PO PRN (08:10)
--- NOTE | 2016-09-17 08:26 | MB ---
cc: SONIA ALEGRIA MD DATE OF CONSULTATION: 09/15/2016 REASON FOR CONSULTATION Stroke. HISTORY OF PRESENT ILLNESS The patient was seen on 09/15/2016 late at night and the note was dictated on 09/16/2016. Mr. Landa is a 60-year-old male with a past medical history of hypertension and tobacco abuse, who presented to [facility] with slurred speech and left arm and hand weakness. The patient states that the hand was "funny" and was clumsy rather than weak. A Stroke Alert was called. The patient was within the window for therapeutic IV TPA, but all his symptoms had improved when he arrived, just with slurred speech and difficulty using his left hand .NIH Stroke Scale was 1, hence the patient was not deemed a candidate for IV TPA and admitted for stroke/TIA work-up. The patient received aspirin in the ED. Of note the patient is on aspirin 81, but he infrequently takes an aspirin. The patient denies any history of TIA or stroke. REVIEW OF SYSTEMS A 12-point review of systems is negative except for what is stated in the HPI. PAST MEDICAL HISTORY 1. Hypertension. 2. Borderline hyperlipidemia. 3. Tobacco abuse. PAST SURGICAL HISTORY 1. Tonsillectomy. 2. Root canal. MEDICATIONS 1. Aspirin 81 mg; not adherent, infrequently takes one per day. 2. Hydrochlorothiazide, which he is also not adherent to. 3. Lisinopril. ALLERGIES AMOXICILLIN. FAMILY HISTORY Mother at 77 years old from a brain aneurysm. Father of old age, had several strokes during his lifetime. SOCIAL HISTORY Cigarette smoker for 40 years. Drinks 12 beers per week, occasionally more than six drinks per day. Denies recreational drug abuse. PHYSICAL EXAMINATION GENERAL: Awake, alert, overweight, not in apparent distress, good historian. HEENT: Atraumatic, normocephalic. Intact vision. Intact hearing. NECK: No carotid bruits. Trachea in the midline. No signs of meningeal irritation. HEART: Sinus tachycardia. Regular rhythm. No murmurs. LUNGS: Clear to auscultation. No wheezes. ABDOMEN: Soft abdomen, not tender. No distention. EXTREMITIES: No clubbing, cyanosis or edema. No deformities. Moves all extremities. NEUROLOGIC: Awake, alert, oriented to time, person and place. Intact memory. Intact speech. No dysphasia. Intact speech content with intact naming, comprehension and repetition. Intact memory. Cranial nerves II-XII are grossly intact. Muscle strength is 5/5 bilaterally throughout. No abnormal movements. Normal tone. Sensation is intact bilateral and symmetrical superficial touch and temperature. Nnjnzy-[id number] and zbrf-ya-mklm are intact. Plantars are bilaterally downgoing. LABORATORY White blood cell count 14.8, hemoglobin 16.2, MCV 93, platelet count 369. Sodium 138, potassium 4.3, BUN 11, creatinine 1.Troponin less that 0.02. IMAGING Head CT scan without contrast was reported as normal. Brain MRI revealed acute ischemic infarct without mass effect in the right frontoparietal region confined to the townsend-white matter junction. Carotid ultrasound revealed bilateral plaque with no evidence of stenosis. Head MRA was reported as a normal examination. DIAGNOSTIC IMPRESSION 1. Acute ischemic stroke in the region of the right MCA. 2. Low NIH scale with improvement of symptoms; patient not a candidate for IV TPA. 3. Hypertension. Upon arrival blood pressure was elevated at 190/117 with a pulse of 108. 4. Hyperlipidemia. 5. Tobacco abuse. PLAN 1. Neuro-checks q.1h. 2. Telemetry. 3. Aspirin 325 mg daily. 4. Statin 40 mg daily. 5. DVT prophylaxis with SCDs. 6. PT and OT recommendations are appreciated. 7. Explanation of the MRI findings, possible etiology of stroke in the future and prognosis were all made to the patient and explained thoroughly. The patient understands well. 8. Cardiac echo. Thank you for the opportunity to participate in the care of your patient. MD CELIO Baltazar/HELEN /10:47 PM /7:58 AM JONAH
[2016-09-17] MEDS ORDERED: ATOR40TA16 PO ×2 (09:02→09:29)
[2016-09-17] MEDS ORDERED: ASPI325T PO (09:02)
--- NOTE | 2016-09-17 09:05 | HHI.DCPOC ---
Discharge Care Plan Diagnosis: (1) Ischemic stroke (2) Left arm weakness (3) Slurred speech (4) HTN (hypertension) (5) Hypertriglyceridemia (6) Tobacco abuse Goals to Promote Your Health * To prevent worsening of your condition and complications follow up with your primary care doctor in 1 week and Neurology in 1 week * To maintain your health at the optimal level follow all discharge instructions Directions to Meet Your Goals Take your medications as prescribed Follow your dietary instruction Follow activity as directed Keep your appointments as scheduled Take your immunizations and boosters as scheduled If your symptoms worsen call your PCP, if no PCP go to Urgent Care Center or Emergency Room Smoking is Dangerous to Your Health. Avoid second hand smoke Call the 24-hour hour crisis hotline for domestic abuse at Monique Louise MD R1 Sep 17, 2016 09:05 Shyla Hi MD September 29, 2016 08:58
--- NOTE | 2016-09-17 09:07 | HHI.FPPN ---
Subjective Remarks No acute events overnight. Afebrile. Vital signs within normal limits. Eating, voiding, stooling, ambulating without difficulty. No further runs of Ventricular tachycardia. Normotensive after re-starting home HCTZ and lisinopril. Patient feels ready to go home today. Discussed discharge on aspirin, statin, and home blood pressure medications. Smoking cessation was advised. Patient had no further questions or concerns. (Monique Louise MD R1) Objective Vitals Vital Signs Date Time Temp Pulse Resp B/P Pulse Ox O2 Delivery O2 Flow Rate FiO2 09/17/16 06:19 96.9 81 20 125/78 96 09/17/16 00:05 96.9 76 18 143/88 96 09/16/16 23:00 84 09/16/16 21:02 97.0 69 20 167/100 96 09/16/16 17:46 97 Nasal Cannula 2.00 09/16/16 15:56 96.8 79 14 145/92 97 09/16/16 15:00 82 09/16/16 12:38 97.2 79 18 137/60 97 I/O 09/16/16 09/16/16 09/16/16 09/17/16 09/17/16 09/17/16 07:00 15:00 23:00 07:00 15:00 23:00 Intake Total 240 ml Output Total 300 ml Balance -300 ml 240 ml Intake Oral 240 ml Output Urine Total 300 ml # Voids 2 # Bowel Movements 0 (Monique Louise MD R1) Result Diagram: 09/16/16 1708 09/16/16 0700 Imaging Last Impressions Chest X-Ray 09/16/16 0000 Signed Impressions: Service Date/Time: Friday, September 16, 2016 09:48 - CONCLUSION: No acute cardiopulmonary abnormality is identified. Karan Martinez MD Head Magnetic Resonance Angiography 09/15/16 0000 Signed Impressions: Service Date/Time: Thursday, September 15, 2016 16:14 - CONCLUSION: Normal examination. Deejay Pierre MD Head CT 09/15/16 0000 Signed Impressions: Service Date/Time: Thursday, September 15, 2016 12:10 - CONCLUSION: Normal examination. Modesto Rubalcava MD Carotid Artery Ultrasound 09/15/16 0000 Signed Impressions: Service Date/Time: Thursday, September 15, 2016 16:49 - CONCLUSION: Mild bilateral plaque with no evidence of stenosis. Jayesh Gutierrez MD Brain MRI 09/15/16 0000 Signed Impressions: Service Date/Time: Thursday, September 15, 2016 16:14 - CONCLUSION: 1. Acute ischemic infarct without mass effect in the right frontal parietal region confined to the [place]send-white junction. Robi Ross MD Objective Remarks GENERAL: Obese male in no acute distress. SKIN: Warm and dry, no rashes HEENT: Pupils equal round and reactive. Extraocular motions intact. Throat without erythema, tonsillar hypertrophy or exudate. NECK: Trachea midline. No JVD or lymphadenopathy. Thick neck. CARDIOVASCULAR: Regular rate and rhythm. No murmurs. Radial and posterior tibial pulses 2+ RESPIRATORY: Clear to auscultation. Breath sounds equal bilaterally. No wheezing. GASTROINTESTINAL: Abdomen obese, soft, non-tender, nondistended. No HSM, No palpable masses MUSCULOSKELETAL: No peripheral edema. No calf tenderness. NEUROLOGICAL: Awake and alert. Subtle R-sided facial droop. Speech clear, no slurring. LUE bicep/tricep strength 5-/5. Strength otherwise 5/5 in all muscle groups. Heating And Refrigeration Inspector strength equal bilaterally. Sensation intact in upper and lower extremities. (Monique Louise MD R1) A/P Assessment and Plan 60 year old male with HTN and tobacco use presenting 09/15/16 with ischemic stroke. Discharge Planning Today (Monique Louise MD R1) Attending Attestation Patient seen and examined. Case reviewed and discussed. Agree with plan of care as discussed with me and documented in the resident note. (Shyla Hi MD) Problem List: (1) Ischemic stroke Status: Acute Plan: Neurologic findings including slurred speech, L arm weakness, loss of fine motor control L hand, and decreased visual acuity. Family history +brain aneurysm (mother, 77). Differential on admission strongly suggestive TIA versus Stroke Presenting in window for thrombolytic tx. However, Dr May spoke with Dr. Coffman of neurology, stated with NIH stroke score of 1, patient not a candidate for thrombolysis at this time. MRI brain (09/15): Acute ischemic infarct without mass effect in the R frontal parietal region confined to the [place]send-white junction Plan Neurology was consulted, recommendations appreciated -Discharge with Aspirin 325, Statin Discharge on aspirin only as antiplatelet as endorses noncompliance with aspirin 81mg at time of stroke Medication Aspirin 325g PO daily High-dose statin, Atorvastatin 40 mg PO HS LSSI for hyperglycemia after stroke Imaging - MRI brain (09/15): Acute ischemic infarct without mass effect in the R frontal parietal region confined to the townsend-white junction - CT brain (09/15) with no acute findings - Carotid ultrasound (09/15)- mild bilateral plaque with no evidence of stenosis - ECHO (09/15): EF 65%. No chamber size or wall motion abnormalities. - MRA- normal examination - EKG: Sinus tachycardia, rate [address] or T-wave abnormalities. Normal intervals. Repeat at 1800 Labs -Trop <0.02 x2, CK x1 wnl. -Lipid Panel: TG 452 / Chol 188 / LDL unreadable / HDL 27, statin as above ( high triglycerides prevents adequate reading of LDL) -Recommended outpatient follow up for hypertriglyceridemia with PCP Supportive management: - Supplemental oxygen as needed for saturations >92% - Telemetry to evaluate for arrhythmia - PT/OT/ST, Case Management, Stroke Navigator consulted PT/OT: No outpatient follow up needed ST: Regular diet, thin liquids, no further follow up needed Stroke Navigator spoke with patient, provided smoking cessation resources - Smoking cessation counseling provided - Discontinued stroke precautions- discontinue Head of bed flat x12 hours - Neurochecks q4h - Hydralazine PRN for B/P >180/100 (2) Left arm weakness Status: Acute Plan: Acute, improved. Secondary to ischemic stroke. -No outpatient PT/OT needed (3) Slurred speech Status: Resolved Plan: Acute, moderate on admission secondary to stroke, resolved. -ST: no dietary limitations, no outpatient follow up needed (4) Ventricular tachycardia seen on echo vasc tech Status: Acute Plan: -Asymptomatic run of 15 beat v-tach seen 09/16/16 @4am when patient getting up to go to bathroom -Continue telemetry -Further workup if becomes symptomatic or with repeat episode (5) HTN (hypertension) Status: Chronic Plan: Chronic. Hypertensive to 190/120 on admission. Currently normotensive -Restarted home B/P meds yesterday evening, pt tolerated well -Lisinopril 40mg daily -HCTZ 25mg daily -Hydralazine PRN for B/P >180/100 (6) Leukocytosis Status: Acute Plan: Leukocytosis to 14.2 on admission, increased to 16.2 today. Does not appear sepsic. Suspect stress reaction. -CXR: no acute disease -Trend CBC, AM labs pending at present (7) Tobacco abuse Status: Chronic Plan: 05/28 ppd * 40y. Enjoys the social aspect of having with beer or coffee. - Smoking cessation counseling provided - Nicotine patch/gum contraindicated, as vasoconstrictor (8) Fluids, Electrolytes, Nutrition, Prophylaxis Status: Acute Plan: Fluids: Encourage PO hydration Electrolytes: Normal on admission, will continue to trend, as replete, as needed Nutrition: Heart Healthy Diet GI prophylaxis: Not indicated DVT prophylaxis: Lovenox 40mg SQ daily Constipation: Eva-Colace 2 tab HS Seen and discussed with Dr. Hi (Monique Louise MD R1) Problem Qualifiers (1) HTN (hypertension): Qualified Code: I10 - Essential hypertension Monique Louise MD R1 Sep 17, 2016 09:07 Shyla Hi MD September 29, 2016 08:59
[2016-09-17 09:21] VITALS: O2SAT 94
[2016-09-17 10:05] LABS: AUTOMATED NEUTROPHIL # 7.7 TH/MM3 (1.8-7.7); BASOPHIL # 0.1 TH/MM3 (0-0.2); BASOPHIL % 0.7 % (0.0-2.0); EOSINOPHIL # 0.3 TH/MM3 (0-0.4); EOSINOPHIL % 2.2 % (0.0-4.0); HEMATOCRIT 46.1 % (39.0-51.0); HEMO FLAGS DIFF FINAL; LYMPH % 27.7 % (9.0-44.0); LYMPHOCYTE # 3.5 TH/MM3 (1.0-4.8); MEAN CELL VOLUME 93.6 FL (80.0-100.0); MEAN CORPUSCULAR HEMOGLOBIN 32.2 PG (27.0-34.0); MEAN CORPUSCULAR HGB CONC 34.4 % (32.0-36.0); MONO % 9.5 % (0.0-8.0); NEUT % 59.9 % (16.0-70.0); PLATELET COUNT 310 TH/MM3 (150-450); RED BLOOD COUNT 4.92 MIL/MM3 (4.50-5.90); WHITE BLOOD COUNT 12.8 TH/MM3 (4.0-11.0)
[2016-09-17 10:38] LABS: BICARBONATE 25.1 MEQ/L (21.0-32.0)
== END 2016-09-17 11:21 | disposition home or self-care (01) | DRG 65 ==
LOC: NEPE 12:11 → NEDA 13:01 → N05A 18:17
PROVIDERS: ADMIT Family Medicine; ATTEND Family Medicine
DX: I63.9 Cerebral infarction, unspecified (principal); I47.2 Ventricular tachycardia; I10 Essential (primary) hypertension; E78.5 Hyperlipidemia, unspecified; R29.810 Facial weakness; K59.00 Constipation, unspecified; D72.829 Elevated white blood cell count, unspecified; F17.200 Nicotine dependence, unspecified, uncomplicated; Z79.82 Long term (current) use of aspirin; Z79.899 Other long term (current) drug therapy; Z91.14 Patient's other noncompliance with medication regimen
CPT/HCPCS: 70450; 70544; 70551; 71010; 80048; 80053; 80061; 80307; 81001; 82435; 82550; 82565; 82947; 82948; 83605; 83735; 84132; 84295; 84484; 84520; 85025; 85027; 85384; 85610; 85730; 86850; 86900; 86901; 87040; 93005; 93306; 93880; J1650; J7030